=== PATIENT | female | born 1990 | race Caucasian/White ===

== ENCOUNTER 2018-01-31 22:54 | Inpatient (IN) | payer BC ==
[2018-02-01] MEDS: Lactated Ringers 1,000 ML IV SCH ×2 (00:05→01:28)
[2018-02-01] MEDS ORDERED: Sodium Chloride 0.9% 10 ML Syringe FLUSH PRN (00:20)
[2018-02-01] MEDS ORDERED: fentaNYL 100 MCG/2 ML SDV EPIDUR PRN (01:21)
[2018-02-01] MEDS ORDERED: diphenhydrAMINE 50 MG/ML SDV IVPUSH PRN (01:21)
[2018-02-01] MEDS ORDERED: ePHEDrine 50 MG/ML SDV IVPUSH PRN (01:21)
[2018-02-01] MEDS ORDERED: Ondansetron 4 MG/2 ML SDV IVPUSH PRN (01:21)
[2018-02-01] MEDS ORDERED: Bupivacaine/fentaNYL/NS 100 ML Bag EPIDUR SCH (01:30)
--- NOTE | 2018-02-01 02:13 | PCM.PREANE ---
Preanesthetic Assessment - Procedure Proposed Procedure: JEREMIAS - Anesthesia/Transfusion/Family Hx Anesthesia History: Prior Anesthesia Without Reaction Family History of Anesthesia Reaction: No Transfusion History: No Prior Transfusion(s) - Review of Systems General: No Symptoms Pulmonary: No Symptoms Cardiovascular: No Symptoms Gastrointestinal: No Symptoms Neurological: No Symptoms Other: Reports: None - Physical Assessment NPO Status Date: 02/01/18 NPO Status Time: 00:30 O2 Sat by Pulse Oximetry: 98 Respiratory Rate: 15 Vital Signs: Last Vital Signs Temp 37.4 C 02/01/18 00:20 Pulse 79 02/01/18 00:20 Resp 15 02/01/18 00:20 BP 118/75 02/01/18 00:20 Pulse Ox 98 02/01/18 00:20 Height: 1.6 m Weight: 93.44 kg ASA Class: 2 Mental Status: Alert & Oriented x3 Airway Class: Mallampati = 2 Dentition: Reports: Normal Dentition Thyro-Mental Finger Breadths: 3 Mouth Opening Finger Breadths: 3 ROM/Head Extension: Full Lungs: Clear to Auscultation, Normal Respiratory Effort Cardiovascular: Regular Rate, Regular Rhythm - Lab Values: Laboratory Last Values WBC 11.97 K/mm3 (3.98-10.04) H 02/01/18 00:35 RBC 3.63 M/mm3 (3.98-5.22) L 02/01/18 00:35 Hgb 11.2 gm/L (11.2-15.7) 02/01/18 00:35 Hct 34.1 % (34.1-44.9) 02/01/18 00:35 MCV 93.9 fl (79.4-94.8) 02/01/18 00:35 MCH 30.9 pg (25.6-32.2) 02/01/18 00:35 MCHC 32.8 g/dl (32.2-35.5) 02/01/18 00:35 RDW Std Deviation 45.7 fL (36.4-46.3) 02/01/18 00:35 Plt Count 216 K/mm3 (182-369) 02/01/18 00:35 MPV 10.3 fl (9.4-12.3) 02/01/18 00:35 Neut % (Auto) 67.7 % (34.0-71.1) 02/01/18 00:35 Lymph % (Auto) 24.2 % (19.3-51.7) 02/01/18 00:35 [place] % (Auto) 6.7 % (4.7-12.5) 02/01/18 00:35 Eos % (Auto) 0.9 (0.7-5.8) 02/01/18 00:35 Baso % (Auto) 0.2 % (0.1-1.2) 02/01/18 00:35 Neut # (Auto) 8.11 K/mm3 (1.56-6.13) H 02/01/18 00:35 Lymph # (Auto) 2.90 K/mm3 (1.18-3.74) 02/01/18 00:35 [place] # (Auto) 0.80 K/mm3 (0.24-0.36) H 02/01/18 00:35 Eos # (Auto) 0.11 K/mm3 (0.04-0.36) 02/01/18 00:35 Baso # (Auto) 0.02 K/mm3 (0.01-0.08) 02/01/18 00:35 Blood Type AB POSITIVE 02/01/18 00:35 Gel Antibody Screen Negative 02/01/18 00:35 - Allergies Allergies/Adverse Reactions: Allergies Allergy/AdvReac Type Severity Reaction Status Date / Time No Known Allergies Allergy Verified 02/01/18 00:19 - Blood Blood Available: No Product(s) Available: None - Anesthesia Plan Pre-Op Medication Ordered: None - Acknowledgements Anesthesia Type Planned: Epidural Pt an Appropriate Candidate for the Planned Anesthesia: Yes Alternatives and Risks of Anesthesia Discussed w Pt/Guardian: Yes Pt/Guardian Understands and Agrees with Anesthesia Plan: Yes 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, , 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 , Other ( See Below) Other OB/BYN History: exploratory lap for endometriosis - Infectious Disease History Infectious Disease History: Reports: Chicken Pox - SUBSTANCE USE Smoking Status *Q: Never Smoker Second Hand Smoke Exposure: No Days Per Week of Alcohol Use: 0 Recreational Drug Use History: No - HOME MEDS Home Medications: Home Meds Pnv with Ca,No.71/Iron/Fa [ Vitamin Tablet] 1 each PO DAILY 01/26/15 [ History] - CURRENT (IN HOUSE) MEDS Current Meds: Current Medications Diphenhydramine HCl (Benadryl) 25 mg IVPUSH Q6H PRN PRN Reason: Pruritis Ephedrine Sulfate (Ephedrine Sulfate) 5 mg IVPUSH ASDIRECTED PRN PRN Reason: Hypotension Fentanyl (Sublimaze) 100 mcg EPIDUR Q3H PRN PRN Reason: Pain Last Admin: 02/01/18 01:52 Dose: 100 mcg Fentanyl/Bupivacaine HCl (Fentanyl/Bupivacaine/Ns 2 Mcg-0.125% 100 Ml) 100 ml EPIDUR ASDIRECTED [facility] Last Admin: 02/01/18 01:53 Dose: 100 ml Lactated Ringer's (Ringers, Lactated) 1,000 mls @ 100 mls/hr IV ASDIRECTED [facility] Last Admin: 02/01/18 01:28 Dose: 999 mls/hr Oxytocin 20 unit/ Lactated (Ringer's) 1,002 mls @ 500 mls/hr IV TITRATE [facility] PRN Reason: Protocol Ondansetron HCl (Zofran) 4 mg IVPUSH ONETIME PRN PRN Reason: Nausea/Vomiting Sodium Chloride (Saline Flush) 10 ml FLUSH ASDIRECTED PRN PRN Reason: Keep Vein Open
--- NOTE | 2018-02-01 02:35 | PCM.LDHP ---
<Teja Solitario - Last Filed: 02/01/18 02:58> L&D History of Present Illness - General Date of Service: 02/01/18 Admit Problem/Dx: Patient Status Order with Admit Dx/Problem 02/01/18 00:20 Patient Status [ADT] Routine Admission Diagnosis/Problem Admission Diagnosis/Problem Source of Information: Patient History Limitations: Reports: No Limitations - History of Present Illness Introduction:: Lilian Harmon is a pleasant 27 year old with an MENDOZA of 02/17/2018 with an EGA of 39 weeks 2 days who presents to labor and delivery after she experienced a gush of fluid at 2100 followed by contractions that began around 2130. She reports the fluid was clear and denies any bloody discharge. She reports the contractions have been occuring every 6 minutes from onset and last approximately 30 seconds. She reports mild abdominal and lower back pain associated with the contractions. She was tested for GBS on 01/25/2018 and was negative. Her blood type is AB + and she is antibody negative. 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, , 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 , Other ( See Below) Other OB/BYN History: exploratory lap for endometriosis - Infectious Disease History Infectious Disease History: Reports: Chicken Pox Social & Family History - Tobacco Use Smoking Status *Q: Never Smoker Second Hand Smoke Exposure: No - Alcohol Use Days Per Week of Alcohol Use: 0 - Recreational Drug Use Recreational Drug Use: No H&P Review of Systems - Review of Systems: Review Of Systems: See Below General: Reports: Fatigue HEENT: Reports: No Symptoms Pulmonary: Reports: No Symptoms Cardiovascular: Reports: No Symptoms Gastrointestinal: Reports: Abdominal Pain Musculoskeletal: Reports: Back Pain Skin: Reports: No Symptoms Psychiatric: Reports: No Symptoms L&D Exam - Exam Exam: See Below - Vital Signs Vital Signs: Last Vital Signs Temp 99.3 F 02/01/18 00:20 Pulse 79 02/01/18 00:20 Resp 15 02/01/18 02:13 BP 118/75 02/01/18 00:20 Pulse Ox 98 02/01/18 02:13 Weight: 206 lb - OB Specific Fundal Height In cm: 35 Contraction Duration (sec): 60 Contraction Frequency (min): 6 Contraction Intensity: Strong Movement: Active Heart Tones: Present Heart Tones per Min: 120 Heart Rate (FHR) Variability: Moderate (6-25 bmp) Presentation: Vertex - Exam General: Alert, Oriented HEENT: Conjunctiva Clear, Hearing Intact, Pupils Equal, Pupils Reactive Lungs: Clear to Auscultation, Normal Respiratory Effort Cardiovascular: Regular Rate, Regular Rhythm GI/Abdominal Exam: Normal Bowel Sounds, Soft, Non-Tender, No Organomegaly, No Distention, No Mass Skin: Warm, Dry, Intact DTR: 1+: Patella (L), Patella (R), 2+: Bicep (L), Bicep (R) Psychiatric: Alert, Normal Affect, Normal Mood - Patient Data Lab Results Last 24 hrs: Laboratory Results - last 24 hr 02/01/18 02/01/18 Range/Units 00:35 00:35 WBC 11.97 H (3.98-10.04) K/mm3 RBC 3.63 L (3.98-5.22) M/mm3 Hgb 11.2 (11.2-15.7) gm/L Hct 34.1 (34.1-44.9) % MCV 93.9 (79.4-94.8) fl MCH 30.9 (25.6-32.2) pg MCHC 32.8 (32.2-35.5) g/dl RDW Std Deviation 45.7 (36.4-46.3) fL Plt Count 216 (182-369) K/mm3 MPV 10.3 (9.4-12.3) fl Neut % (Auto) 67.7 (34.0-71.1) % Lymph % (Auto) 24.2 (19.3-51.7) % [place] % (Auto) 6.7 (4.7-12.5) % Eos % (Auto) 0.9 (0.7-5.8) Baso % (Auto) 0.2 (0.1-1.2) % Neut # (Auto) 8.11 H (1.56-6.13) K/mm3 Lymph # (Auto) 2.90 (1.18-3.74) K/mm3 [place] # (Auto) 0.80 H (0.24-0.36) K/mm3 Eos # (Auto) 0.11 (0.04-0.36) K/mm3 Baso # (Auto) 0.02 (0.01-0.08) K/mm3 Blood Type AB POSITIVE Gel Antibody Screen Negative Result Diagrams: 02/01/18 00:35 Orders Last 24hrs: Active Orders 24 hr Category Date Time Status Patient Status [ADT] Routine ADT 02/01/18 00:20 Active Activity as Tolerated [RC] PFP Care 02/01/18 00:20 Active Communication Order [RC] ASDIRECTED Care 02/01/18 00:20 Active Heart Tones [RC] ASDIRECTED Care 02/01/18 00:20 Active Insert [place] Catheter [Insert Urinary Catheter] [OM.PC] Care 02/01/18 00:30 Ordered Q24H Notify Provider [RC] PFP Care 02/01/18 00:20 Active Notify Provider [RC] PRN Care 02/01/18 00:20 Active PCEA Epidural [RC] ASDIRECTED Care 02/01/18 00:21 Active Peripheral IV Care [RC] . DIRECTED Care 02/01/18 00:20 Active Urinary Catheter Assessment [RC] ASDIRECTED Care 02/01/18 00:21 Active Vital Signs [RC] PER UNIT ROUTINE Care 02/01/18 00:20 Active PATIENT RETYPE [BBK] Stat Lab 02/01/18 00:35 Results TYPE AND SCREEN [BBK] Stat Lab 02/01/18 00:35 Results Bupivacaine/fentaNYL/NS [fentaNYL/Bupivacaine/NS 2 MCG- Med 02/01/18 01:30 Active 0.125% 100 ML] 100 ml EPIDUR ASDIRECTED Lactated Ringers [Ringers, Lactated] 1,000 ml Med 02/01/18 00:30 Active IV ASDIRECTED Ondansetron [Zofran] Med 02/01/18 01:21 Active 4 mg IVPUSH ONETIME PRN Oxytocin [Pitocin] 20 unit Med 02/01/18 00:30 Active Lactated Ringers [Ringers, Lactated] 1,000 ml IV TITRATE Sodium Chloride 0.9% [Saline Flush] Med 02/01/18 00:20 Active 10 ml FLUSH ASDIRECTED PRN diphenhydrAMINE [Benadryl] Med 02/01/18 01:21 Active 25 mg IVPUSH Q6H PRN ePHEDrine [ePHEDrine Sulfate] Med 02/01/18 01:21 Active 5 mg IVPUSH ASDIRECTED PRN fentaNYL [Sublimaze] Med 02/01/18 01:21 Active 100 mcg EPIDUR Q3H PRN Electronic Heart Tones Ext w TOCO [WOMSER] Oth 02/01/18 00:20 Ordered Routine Electronic Heart Tones Internal [WOMSER] Per Unit Oth 02/01/18 00:20 Ordered Routine Peripheral IV Insertion Adult [OM.PC] Routine Oth 02/01/18 00:20 Ordered Resuscitation Status Routine Resus Stat 02/01/18 00:20 Ordered Medication Orders Diphenhydramine HCl (Benadryl) 25 mg IVPUSH Q6H PRN PRN Reason: Pruritis Ephedrine Sulfate (Ephedrine Sulfate) 5 mg IVPUSH ASDIRECTED PRN PRN Reason: Hypotension Fentanyl (Sublimaze) 100 mcg EPIDUR Q3H PRN PRN Reason: Pain Last Admin: 02/01/18 01:52 Dose: 100 mcg Fentanyl/Bupivacaine HCl (Fentanyl/Bupivacaine/Ns 2 Mcg-0.125% 100 Ml) 100 ml EPIDUR ASDIRECTED [facility] Last Admin: 02/01/18 01:53 Dose: 100 ml Lactated Ringer's (Ringers, Lactated) 1,000 mls @ 100 mls/hr IV ASDIRECTED [facility] Last Admin: 02/01/18 01:28 Dose: 999 mls/hr Infusion: 02/01/18 01:28 Dose: 100 mls/hr Admin: 02/01/18 00:05 Dose: 100 mls/hr Oxytocin 20 unit/ Lactated (Ringer's) 1,002 mls @ 500 mls/hr IV TITRATE [facility] PRN Reason: Protocol Ondansetron HCl (Zofran) 4 mg IVPUSH ONETIME PRN PRN Reason: Nausea/Vomiting Sodium Chloride (Saline Flush) 10 ml FLUSH ASDIRECTED PRN PRN Reason: Keep Vein Open <Gian Anders - Last Filed: 02/01/18 03:05> L&D History of Present Illness - General Admit Problem/Dx: Patient Status Order with Admit Dx/Problem 02/01/18 00:20 Patient Status [ADT] Routine Admission Diagnosis/Problem Admission Diagnosis/Problem L&D Exam - Vital Signs Vital Signs: Last Vital Signs Temp 99.3 F 02/01/18 00:20 Pulse 79 02/01/18 00:20 Resp 15 02/01/18 02:13 BP 118/75 02/01/18 00:20 Pulse Ox 98 02/01/18 02:13 - Patient Data Lab Results Last 24 hrs: Laboratory Results - last 24 hr 02/01/18 02/01/18 Range/Units 00:35 00:35 WBC 11.97 H (3.98-10.04) K/mm3 RBC 3.63 L (3.98-5.22) M/mm3 Hgb 11.2 (11.2-15.7) gm/L Hct 34.1 (34.1-44.9) % MCV 93.9 (79.4-94.8) fl MCH 30.9 (25.6-32.2) pg MCHC 32.8 (32.2-35.5) g/dl RDW Std Deviation 45.7 (36.4-46.3) fL Plt Count 216 (182-369) K/mm3 MPV 10.3 (9.4-12.3) fl Neut % (Auto) 67.7 (34.0-71.1) % Lymph % (Auto) 24.2 (19.3-51.7) % [place] % (Auto) 6.7 (4.7-12.5) % Eos % (Auto) 0.9 (0.7-5.8) Baso % (Auto) 0.2 (0.1-1.2) % Neut # (Auto) 8.11 H (1.56-6.13) K/mm3 Lymph # (Auto) 2.90 (1.18-3.74) K/mm3 [place] # (Auto) 0.80 H (0.24-0.36) K/mm3 Eos # (Auto) 0.11 (0.04-0.36) K/mm3 Baso # (Auto) 0.02 (0.01-0.08) K/mm3 Blood Type AB POSITIVE Gel Antibody Screen Negative Result Diagrams: 02/01/18 00:35 - Problem List (1) 37 weeks gestation of SNOMED Code(s): 34457250 ICD Code: Z3A.37 - 37 WEEKS GESTATION OF Status: Acute Current Visit: Yes Problem List Initiated/Reviewed/Updated: No Orders Last 24hrs: Active Orders 24 hr Category Date Time Status Patient Status [ADT] Routine ADT 02/01/18 00:20 Active Activity as Tolerated [RC] PFP Care 02/01/18 00:20 Active Communication Order [RC] ASDIRECTED Care 02/01/18 00:20 Active Heart Tones [RC] ASDIRECTED Care 02/01/18 00:20 Active Insert Moreno Catheter [Insert Urinary Catheter] [OM.PC] Care 02/01/18 00:30 Ordered Q24H Notify Provider [RC] PFP Care 02/01/18 00:20 Active Notify Provider [RC] PRN Care 02/01/18 00:20 Active PCEA Epidural [RC] ASDIRECTED Care 02/01/18 00:21 Active Peripheral IV Care [RC] . DIRECTED Care 02/01/18 00:20 Active Urinary Catheter Assessment [RC] ASDIRECTED Care 02/01/18 00:21 Active Vital Signs [RC] PER UNIT ROUTINE Care 02/01/18 00:20 Active PATIENT RETYPE [BBK] Stat Lab 02/01/18 00:35 Results TYPE AND SCREEN [BBK] Stat Lab 02/01/18 00:35 Results Bupivacaine/fentaNYL/NS [fentaNYL/Bupivacaine/NS 2 MCG- Med 02/01/18 01:30 Active 0.125% 100 ML] 100 ml EPIDUR ASDIRECTED Lactated Ringers [Ringers, Lactated] 1,000 ml Med 02/01/18 00:30 Active IV ASDIRECTED Ondansetron [Zofran] Med 02/01/18 01:21 Active 4 mg IVPUSH ONETIME PRN Oxytocin [Pitocin] 20 unit Med 02/01/18 00:30 Active Lactated Ringers [Ringers, Lactated] 1,000 ml IV TITRATE Sodium Chloride 0.9% [Saline Flush] Med 02/01/18 00:20 Active 10 ml FLUSH ASDIRECTED PRN diphenhydrAMINE [Benadryl] Med 02/01/18 01:21 Active 25 mg IVPUSH Q6H PRN ePHEDrine [ePHEDrine Sulfate] Med 02/01/18 01:21 Active 5 mg IVPUSH ASDIRECTED PRN fentaNYL [Sublimaze] Med 02/01/18 01:21 Active 100 mcg EPIDUR Q3H PRN Electronic Heart Tones Ext w TOCO [WOMSER] Oth 02/01/18 00:20 Ordered Routine Electronic Heart Tones Internal [WOMSER] Per Unit Oth 02/01/18 00:20 Ordered Routine Peripheral IV Insertion Adult [OM.PC] Routine Oth 02/01/18 00:20 Ordered Resuscitation Status Routine Resus Stat 02/01/18 00:20 Ordered Medication Orders Diphenhydramine HCl (Benadryl) 25 mg IVPUSH Q6H PRN PRN Reason: Pruritis Ephedrine Sulfate (Ephedrine Sulfate) 5 mg IVPUSH ASDIRECTED PRN PRN Reason: Hypotension Fentanyl (Sublimaze) 100 mcg EPIDUR Q3H PRN PRN Reason: Pain Last Admin: 02/01/18 01:52 Dose: 100 mcg Fentanyl/Bupivacaine HCl (Fentanyl/Bupivacaine/Ns 2 Mcg-0.125% 100 Ml) 100 ml EPIDUR ASDIRECTED [facility] Last Admin: 02/01/18 01:53 Dose: 100 ml Lactated Ringer's (Ringers, Lactated) 1,000 mls @ 100 mls/hr IV ASDIRECTED [facility] Last Admin: 02/01/18 01:28 Dose: 999 mls/hr Infusion: 02/01/18 01:28 Dose: 100 mls/hr Admin: 02/01/18 00:05 Dose: 100 mls/hr Oxytocin 20 unit/ Lactated (Ringer's) 1,002 mls @ 500 mls/hr IV TITRATE [facility] PRN Reason: Protocol Ondansetron HCl (Zofran) 4 mg IVPUSH ONETIME PRN PRN Reason: Nausea/Vomiting Sodium Chloride (Saline Flush) 10 ml FLUSH ASDIRECTED PRN PRN Reason: Keep Vein Open Assessment/Plan Comment:: Patient seen, examined, discussed with patient. Plan delivery.
--- NOTE | 2018-02-01 03:12 | PCM.DEL ---
L & D Note - General Info Date of Service: 02/01/18 Mother's Due Date: 02/17/18 - Delivery Note Labor: Spontaneous Delivery Outcome: Livebirth (Male liveborn Thursday02[birth year]01[birth year]18 at 0248 hours RUBI nuchal cord times one Apgars 8/9 weight 3520 g 7 pounds 12.2 ounces) Delivery Method: Spontaneous Vaginal Delivery-Single Delivery Mode: Spontaneous Presentation: Left Occiput Anterior (RUBI) Nuchal Cord: Present (Times one reduced over the head) Prep: Povidone-Iodine (Betadine Anesthesia Type: Epidural Amniotic Fluid Description: Clear Episiotomy Type: None Laceration: None Placenta: Intact, [place]ontaneous ([place] [address]/01/18 velamentous insertion of the cord intact with senna and membranes discarded) Cord: 3 Vessels Estimated Blood Loss: 250 Resuscitation Needed: No : Suctioned, Bulb Syringe, Stimulated, Warmed, [place] Used, Warmer Used Provider: Gian Anders Score 1 min: 8 Score 5 min: 9 - Patient Data Vitals - Most Recent: Last Vital Signs Temp 99.3 F 02/01/18 00:20 Pulse 79 02/01/18 00:20 Resp 15 02/01/18 02:13 BP 118/75 02/01/18 00:20 Pulse Ox 98 02/01/18 02:13 Weight - Most Recent: 206 lb I&O - Last 24 Hours: Intake & Output 01/31/18 01/31/18 02/01/18 14:59 22:59 06:59 Intake Total 1000 Balance 1000 Lab Results Last 24 Hours: Laboratory Results - last 24 hr 02/01/18 02/01/18 Range/Units 00:35 00:35 WBC 11.97 H (3.98-10.04) K/mm3 RBC 3.63 L (3.98-5.22) M/mm3 Hgb 11.2 (11.2-15.7) gm/L Hct 34.1 (34.1-44.9) % MCV 93.9 (79.4-94.8) fl MCH 30.9 (25.6-32.2) pg MCHC 32.8 (32.2-35.5) g/dl RDW Std Deviation 45.7 (36.4-46.3) fL Plt Count 216 (182-369) K/mm3 MPV 10.3 (9.4-12.3) fl Neut % (Auto) 67.7 (34.0-71.1) % Lymph % (Auto) 24.2 (19.3-51.7) % [place] % (Auto) 6.7 (4.7-12.5) % Eos % (Auto) 0.9 (0.7-5.8) Baso % (Auto) 0.2 (0.1-1.2) % Neut # (Auto) 8.11 H (1.56-6.13) K/mm3 Lymph # (Auto) 2.90 (1.18-3.74) K/mm3 [place] # (Auto) 0.80 H (0.24-0.36) K/mm3 Eos # (Auto) 0.11 (0.04-0.36) K/mm3 Baso # (Auto) 0.02 (0.01-0.08) K/mm3 Blood Type AB POSITIVE Gel Antibody Screen Negative Med Orders - Current: Current Medications Diphenhydramine HCl (Benadryl) 25 mg IVPUSH Q6H PRN PRN Reason: Pruritis Ephedrine Sulfate (Ephedrine Sulfate) 5 mg IVPUSH ASDIRECTED PRN PRN Reason: Hypotension Fentanyl (Sublimaze) 100 mcg EPIDUR Q3H PRN PRN Reason: Pain Last Admin: 02/01/18 01:52 Dose: 100 mcg Fentanyl/Bupivacaine HCl (Fentanyl/Bupivacaine/Ns 2 Mcg-0.125% 100 Ml) 100 ml EPIDUR ASDIRECTED [facility] Last Admin: 02/01/18 01:53 Dose: 100 ml Lactated Ringer's (Ringers, Lactated) 1,000 mls @ 100 mls/hr IV ASDIRECTED [facility] Last Admin: 02/01/18 01:28 Dose: 999 mls/hr Oxytocin 20 unit/ Lactated (Ringer's) 1,002 mls @ 500 mls/hr IV TITRATE [facility] PRN Reason: Protocol Ondansetron HCl (Zofran) 4 mg IVPUSH ONETIME PRN PRN Reason: Nausea/Vomiting Sodium Chloride (Saline Flush) 10 ml FLUSH ASDIRECTED PRN PRN Reason: Keep Vein Open - Problem List & Annotations (1) 37 weeks gestation of SNOMED Code(s): 51780696 Code(s): Z3A.37 - 37 WEEKS GESTATION OF Status: Acute Current Visit: Yes (2) Normal delivery at term SNOMED Code(s): 87411007 Code(s): O80 - ENCOUNTER FOR FULL-TERM UNCOMPLICATED DELIVERY Status: Acute Current Visit: Yes (3) Nuchal cord without compression, delivered, current hospitalization SNOMED Code(s): 26601498 Code(s): O69.81X0 - LABOR AND DEL COMP BY CORD AROUND NECK, W/O COMPRSN, UNSP Status: Acute Current Visit: Yes (4) Velamentous insertion of umbilical cord, third trimester SNOMED Code(s): 11178060 Code(s): O43.123 - VELAMENTOUS INSERTION OF UMBILICAL CORD, THIRD TRIMESTER Status: Acute Current Visit: Yes - Problem List Review Problem List Initiated/Reviewed/Updated: No - My Orders Last 24 Hours: My Active Orders 02/01/18 00:20 Patient Status [ADT] Routine Activity as Tolerated [RC] PFP Communication Order [RC] ASDIRECTED Heart Tones [RC] ASDIRECTED Notify Provider [RC] PFP Notify Provider [RC] PRN Peripheral IV Care [RC] . DIRECTED Vital Signs [RC] PER UNIT ROUTINE Sodium Chloride 0.9% [Saline Flush] 10 ml FLUSH ASDIRECTED PRN Electronic Heart Tones Ext w TOCO [WOMSER] Routine Electronic Heart Tones Internal [WOMSER] Per Unit Routine Peripheral IV Insertion Adult [OM.PC] Routine Resuscitation Status Routine 02/01/18 00:21 PCEA Epidural [RC] ASDIRECTED Urinary Catheter Assessment [RC] ASDIRECTED 02/01/18 00:30 Insert Moreno Catheter [Insert Urinary Catheter] [OM.PC] Q24H Lactated Ringers [Ringers, Lactated] 1,000 ml IV ASDIRECTED Oxytocin [Pitocin] 20 unit Lactated Ringers [Ringers, Lactated] 1,000 ml IV TITRATE 02/01/18 00:35 PATIENT RETYPE [BBK] Stat TYPE AND SCREEN [BBK] Stat - Plan Plan:: Patient seen, examined, discussed with patient. Plan delivery.
[2018-02-01] MEDS ORDERED: Lanolin 100% Cream 7 GM Tube TOP PRN (03:17)
[2018-02-01] MEDS ORDERED: Benzocaine/Menthol 20%-0.5% Spray 56 GM Canister TOP PRN (03:17)
[2018-02-01] MEDS ORDERED: Acetaminophen/HYDROcodone 325-5 MG Tab PO PRN (03:17)
[2018-02-01] MEDS ORDERED: Witch Hazel Medicated Pads 100/Jar TOP PRN (03:17)
[2018-02-01] MEDS ORDERED: Ibuprofen 600 MG Tab PO PRN (03:17)
[2018-02-01] MEDS ORDERED: Docusate Sodium 100 MG Cap PO PRN (03:17)
[2018-02-01] MEDS ORDERED: Acetaminophen 325 MG Tab PO PRN (03:17)
[2018-02-01] MEDS ORDERED: Bupivacaine 0.25% 10 ML SDV ONE (07:00)
--- NOTE | 2018-02-01 08:06 | PCM.SN ---
- Free Text/Narrative Note: exam Afebrile, chest clear, uterus at umbilicus -1. No heavy vaginal bleeding. No leg cramping.
[2018-02-01] MEDS ORDERED: Prenatal Multivitamin with Calcium/Folic Acid/Iron Tab PO SCH (09:00)
[2018-02-01 23:44] VITALS: BP 119/74
--- NOTE | 2018-02-02 09:13 | PCM48HPAN ---
Post Anesthesia Note - EVALUATION WITHIN 48HRS OF ANESTHETIC Vital Signs in Normal Range: Yes Patient Participated in Evaluation: Yes Respiratory Function Stable: Yes Airway Patent: Yes Cardiovascular Function Stable: Yes Hydration Status Stable: Yes Pain Control Satisfactory: Yes Nausea and Vomiting Control Satisfactory: Yes Mental Status Recovered: Yes (no complaints) Pulse Rate: 84 Resp Rate: 15 Temperature: 97.5 F Blood Pressure: 119/74
--- NOTE | 2018-02-02 12:39 | PCM.DCSUM1 ---
Discharge Summary - Hospital Course Free Text/Narrative:: uneventful, see Dr. Frances has appointment in [place] 02/10/18. [facility] LIVE L/D Delivery Note Patient Name: JANIA LIMA Date of : 86 Patient Status: Inpatient Attending Provider: Gian Anders Date: 02/01/18 03:08 Initialization Date: 02/01/18 03:08 L & D Note - General Info Date of Service: 02/01/18 Mother's Due Date: 02/17/18 - Delivery Note Labor: Spontaneous Delivery Outcome: Livebirth (Male liveborn Thursday02/01/18 at 0248 hours RUBI nuchal cord times one Apgars 8/9 weight 3520 g 7 pounds 12.2 ounces) Infant Delivery Method: Spontaneous Vaginal Delivery-Single Delivery Mode: Spontaneous Presentation: Left Occiput Anterior (RUBI) Nuchal Cord: Present (Times one reduced over the head) Prep: Povidone-Iodine (Betadine Anesthesia Type: Epidural Amniotic Fluid Description: Clear Episiotomy Type: None Laceration: None Placenta: Intact, Spontaneous (At 0253 Thursday02/01/18 velamentous insertion of the cord intact with senna and membranes discarded) Cord: 3 Vessels Estimated Blood Loss: 250 Resuscitation Needed: No Kinder: Suctioned, Bulb Syringe, Stimulated, Warmed, [place] Used, Warmer Used Provider: Gian Anders Score 1 min: 8 Score 5 min: 9 - Patient Data Vitals - Most Recent: Last Vital Signs Temp 99.3 F 02/01/18 00:20 Pulse 79 02/01/18 00:20 Resp 15 02/01/18 02:13 BP 118/75 02/01/18 00:20 Pulse Ox 98 02/01/18 02:13 Weight - Most Recent: 206 lb I&O - Last 24 Hours: Intake & Output 01/31/18 01/31/18 02/01/18 14:59 22:59 06:59 Intake Total 1000 Balance 1000 Lab Results Last 24 Hours: Laboratory Results - last 24 hr 02/01/18 02/01/18 Range/Units 00:35 00:35 WBC 11.97 H (3.98-10.04) K/mm3 RBC 3.63 L (3.98-5.22) M/mm3 Hgb 11.2 (11.2-15.7) gm/L Hct 34.1 (34.1-44.9) % MCV 93.9 (79.4-94.8) fl MCH 30.9 (25.6-32.2) pg MCHC 32.8 (32.2-35.5) g/dl RDW Std Deviation 45.7 (36.4-46.3) fL Plt Count 216 (182-369) K/mm3 MPV 10.3 (9.4-12.3) fl Neut % (Auto) 67.7 (34.0-71.1) % Lymph % (Auto) 24.2 (19.3-51.7) % [place] % (Auto) 6.7 (4.7-12.5) % Eos % (Auto) 0.9 (0.7-5.8) Baso % (Auto) 0.2 (0.1-1.2) % Neut # (Auto) 8.11 H (1.56-6.13) K/mm3 Lymph # (Auto) 2.90 (1.18-3.74) K/mm3 [place] # (Auto) 0.80 H (0.24-0.36) K/mm3 Eos # (Auto) 0.11 (0.04-0.36) K/mm3 Baso # (Auto) 0.02 (0.01-0.08) K/mm3 Blood Type AB POSITIVE Gel Antibody Screen Negative Med Orders - Current: Current Medications Diphenhydramine HCl (Benadryl) 25 mg IVPUSH Q6H PRN PRN Reason: Pruritis Ephedrine Sulfate (Ephedrine Sulfate) 5 mg IVPUSH ASDIRECTED PRN PRN Reason: Hypotension Fentanyl (Sublimaze) 100 mcg EPIDUR Q3H PRN PRN Reason: Pain Last Admin: 02/01/18 01:52 Dose: 100 mcg Fentanyl/Bupivacaine HCl (Fentanyl/Bupivacaine/Ns 2 Mcg-0.125% 100 Ml) 100 ml EPIDUR ASDIRECTED VIRGILIO Last Admin: 02/01/18 01:53 Dose: 100 ml Lactated Ringer's (Ringers, Lactated) 1,000 mls @ 100 mls/hr IV ASDIRECTED VIRGILIO Last Admin: 02/01/18 01:28 Dose: 999 mls/hr Oxytocin 20 unit/ Lactated (Ringer's) 1,002 mls @ 500 mls/hr IV TITRATE VIRGILIO PRN Reason: Protocol Ondansetron HCl (Zofran) 4 mg IVPUSH ONETIME PRN PRN Reason: Nausea/Vomiting Sodium Chloride (Saline Flush) 10 ml FLUSH ASDIRECTED PRN PRN Reason: Keep Vein Open - Problem List & Annotations (1) 37 weeks gestation of SNOMED Code(s): 06061067 Code(s): Z3A.37 - 37 WEEKS GESTATION OF Status: Acute Current Visit: Yes (2) Normal delivery at term SNOMED Code(s): 54704510 Code(s): O80 - ENCOUNTER FOR FULL-TERM UNCOMPLICATED DELIVERY Status: Acute Current Visit: Yes (3) Nuchal cord without compression, delivered, current hospitalization SNOMED Code(s): 05284288 Code(s): O69.81X0 - LABOR AND DEL COMP BY CORD AROUND NECK, W/O COMPRSN, UNSP Status: Acute Current Visit: Yes (4) Velamentous insertion of umbilical cord, third trimester SNOMED Code(s): 13781566 Code(s): O43.123 - VELAMENTOUS INSERTION OF UMBILICAL CORD, THIRD TRIMESTER Status: Acute Current Visit: Yes - Problem List Review Problem List Initiated/Reviewed/Updated: No - My Orders Last 24 Hours: My Active Orders 02/01/18 00:20 Patient Status [ADT] Routine Activity as Tolerated [RC] PFP Communication Order [RC] ASDIRECTED Heart Tones [RC] ASDIRECTED Notify Provider [RC] PFP Notify Provider [RC] PRN Peripheral IV Care [RC] . DIRECTED Vital Signs [RC] PER UNIT ROUTINE Sodium Chloride 0.9% [Saline Flush] 10 ml FLUSH ASDIRECTED PRN Electronic Heart Tones Ext w TOCO [WOMSER] Routine Electronic Heart Tones Internal [WOMSER] Per Unit Routine Peripheral IV Insertion Adult [OM.PC] Routine Resuscitation Status Routine 02/01/18 00:21 PCEA Epidural [RC] ASDIRECTED Urinary Catheter Assessment [RC] ASDIRECTED 02/01/18 00:30 Insert Moreno Catheter [Insert Urinary Catheter] [OM.PC] Q24H Lactated Ringers [Ringers, Lactated] 1,000 ml IV ASDIRECTED Oxytocin [Pitocin] 20 unit Lactated Ringers [Ringers, Lactated] 1,000 ml IV TITRATE 02/01/18 00:35 PATIENT RETYPE [BBK] Stat TYPE AND SCREEN [BBK] Stat - Plan Plan:: Patient seen, examined, discussed with patient. Plan delivery. HPI Initial Comments: uneventful, see Dr. Frances has appointment in [place] 02/10/18. [facility] LIVE L/D Delivery Note Patient Name: JANIA LIMA Date of : 86 Patient Status: Inpatient Attending Provider: Gian Anders Date: 02/01/18 03:08 Initialization Date: 02/01/18 03:08 L & D Note - General Info Date of Service: 02/01/18 Mother's Due Date: 02/17/18 - Delivery Note Labor: Spontaneous Delivery Outcome: Livebirth (Male liveborn Thursday02/01/18 at 0248 hours RUBI nuchal cord times one Apgars 8/9 weight 3520 g 7 pounds 12.2 ounces) Infant Delivery Method: Spontaneous Vaginal Delivery-Single Infant Delivery Mode: Spontaneous Presentation: Left Occiput Anterior (RUBI) Nuchal Cord: Present (Times one reduced over the head) Prep: Povidone-Iodine (Betadine Anesthesia Type: Epidural Amniotic Fluid Description: Clear Episiotomy Type: None Laceration: None Placenta: Intact, Spontaneous (At 0253 Thursday02/01/18 velamentous insertion of the cord intact with senna and membranes discarded) Cord: 3 Vessels Estimated Blood Loss: 250 Resuscitation Needed: No : Suctioned, Bulb Syringe, Stimulated, Warmed, [place] Used, Warmer Used Provider: Gian Anders Score 1 min: 8 Score 5 min: 9 - Patient Data Vitals - Most Recent: Last Vital Signs Temp 99.3 F 02/01/18 00:20 Pulse 79 02/01/18 00:20 Resp 15 02/01/18 02:13 BP 118/75 02/01/18 00:20 Pulse Ox 98 02/01/18 02:13 Weight - Most Recent: 206 lb I&O - Last 24 Hours: Intake & Output 01/31/18 01/31/18 02/01/18 14:59 22:59 06:59 Intake Total 1000 Balance 1000 Lab Results Last 24 Hours: Laboratory Results - last 24 hr 02/01/18 02/01/18 Range/Units 00:35 00:35 WBC 11.97 H (3.98-10.04) K/mm3 RBC 3.63 L (3.98-5.22) M/mm3 Hgb 11.2 (11.2-15.7) gm/L Hct 34.1 (34.1-44.9) % MCV 93.9 (79.4-94.8) fl MCH 30.9 (25.6-32.2) pg MCHC 32.8 (32.2-35.5) g/dl RDW Std Deviation 45.7 (36.4-46.3) fL Plt Count 216 (182-369) K/mm3 MPV 10.3 (9.4-12.3) fl Neut % (Auto) 67.7 (34.0-71.1) % Lymph % (Auto) 24.2 (19.3-51.7) % [place] % (Auto) 6.7 (4.7-12.5) % Eos % (Auto) 0.9 (0.7-5.8) Baso % (Auto) 0.2 (0.1-1.2) % Neut # (Auto) 8.11 H (1.56-6.13) K/mm3 Lymph # (Auto) 2.90 (1.18-3.74) K/mm3 [place] # (Auto) 0.80 H (0.24-0.36) K/mm3 Eos # (Auto) 0.11 (0.04-0.36) K/mm3 Baso # (Auto) 0.02 (0.01-0.08) K/mm3 Blood Type AB POSITIVE Gel Antibody Screen Negative Med Orders - Current: Current Medications Diphenhydramine HCl (Benadryl) 25 mg IVPUSH Q6H PRN PRN Reason: Pruritis Ephedrine Sulfate (Ephedrine Sulfate) 5 mg IVPUSH ASDIRECTED PRN PRN Reason: Hypotension Fentanyl (Sublimaze) 100 mcg EPIDUR Q3H PRN PRN Reason: Pain Last Admin: 02/01/18 01:52 Dose: 100 mcg Fentanyl/Bupivacaine HCl (Fentanyl/Bupivacaine/Ns 2 Mcg-0.125% 100 Ml) 100 ml EPIDUR ASDIRECTED VIRGILIO Last Admin: 02/01/18 01:53 Dose: 100 ml Lactated Ringer's (Ringers, Lactated) 1,000 mls @ 100 mls/hr IV ASDIRECTED VIRGILIO Last Admin: 02/01/18 01:28 Dose: 999 mls/hr Oxytocin 20 unit/ Lactated (Ringer's) 1,002 mls @ 500 mls/hr IV TITRATE VIRGILIO PRN Reason: Protocol Ondansetron HCl (Zofran) 4 mg IVPUSH ONETIME PRN PRN Reason: Nausea/Vomiting Sodium Chloride (Saline Flush) 10 ml FLUSH ASDIRECTED PRN PRN Reason: Keep Vein Open - Problem List & Annotations (1) 37 weeks gestation of SNOMED Code(s): 84699677 Code(s): Z3A.37 - 37 WEEKS GESTATION OF Status: Acute Current Visit: Yes (2) Normal delivery at term SNOMED Code(s): 92432050 Code(s): O80 - ENCOUNTER FOR FULL-TERM UNCOMPLICATED DELIVERY Status: Acute Current Visit: Yes (3) Nuchal cord without compression, delivered, current hospitalization SNOMED Code(s): 09269399 Code(s): O69.81X0 - LABOR AND DEL COMP BY CORD AROUND NECK, W/O COMPRSN, UNSP Status: Acute Current Visit: Yes (4) Velamentous insertion of umbilical cord, third trimester SNOMED Code(s): 57730058 Code(s): O43.123 - VELAMENTOUS INSERTION OF UMBILICAL CORD, THIRD TRIMESTER Status: Acute Current Visit: Yes - Problem List Review Problem List Initiated/Reviewed/Updated: No - My Orders Last 24 Hours: My Active Orders 02/01/18 00:20 Patient Status [ADT] Routine Activity as Tolerated [RC] PFP Communication Order [RC] ASDIRECTED Heart Tones [RC] ASDIRECTED Notify Provider [RC] PFP Notify Provider [RC] PRN Peripheral IV Care [RC] . DIRECTED Vital Signs [RC] PER UNIT ROUTINE Sodium Chloride 0.9% [Saline Flush] 10 ml FLUSH ASDIRECTED PRN Electronic Heart Tones Ext w TOCO [WOMSER] Routine Electronic Heart Tones Internal [WOMSER] Per Unit Routine Peripheral IV Insertion Adult [OM.PC] Routine Resuscitation Status Routine 02/01/18 00:21 PCEA Epidural [RC] ASDIRECTED Urinary Catheter Assessment [RC] ASDIRECTED 02/01/18 00:30 Insert Moreno Catheter [Insert Urinary Catheter] [OM.PC] Q24H Lactated Ringers [Ringers, Lactated] 1,000 ml IV ASDIRECTED Oxytocin [Pitocin] 20 unit Lactated Ringers [Ringers, Lactated] 1,000 ml IV TITRATE 02/01/18 00:35 PATIENT RETYPE [BBK] Stat TYPE AND SCREEN [BBK] Stat - Plan Plan:: Patient seen, examined, discussed with patient. Plan delivery. Brief History: uneventful, see Dr. Frances has appointment in [place] 02/10/18. [facility] LIVE . L/D Delivery Note. Patient Name: JANIA LIMA Record Number: [id number]. Date of : 86Patient Status: Inpatient. Attending Provider: Gian Anders Number: [id number]. Date: 02/01/18 03:08Initialization Date: 02/01/18 03:08. L & D Note. - General Info. Date of Service: 02/01/18. Mother's Due Date: 02/17/18. - Delivery Note. Labor: Spontaneous. Delivery Outcome: Livebirth (Male liveborn Thursday02/01/18 at 0248 hours RUBI nuchal cord times one Apgars 8/9 weight 3520 g 7 pounds 12.2 ounces). Infant Delivery Method: Spontaneous Vaginal Delivery- Single. Delivery Mode: Spontaneous. Presentation: Left Occiput Anterior (RUBI). Nuchal Cord: Present (Times one reduced over the head). Prep: Povidone-Iodine (Betadine. Anesthesia Type: Epidural. Amniotic Fluid Description: Clear. Episiotomy Type: None. Laceration: None. Placenta: Intact , Spontaneous (At 0253 Thursday02/01/18 velamentous insertion of the cord intact with senna and membranes discarded). Cord: 3 Vessels. Estimated Blood Loss: 250. Resuscitation Needed: No. Kinder: Suctioned, Bulb Syringe, Stimulated, Warmed, [place] Used, Warmer Used. Provider: Gian Anders. Score 1 min: 8. Score 5 min: 9. - Patient Data. Vitals - Most Recent: Last Vital Signs. Temp 99.3 F 02/01/18 00:20. Pulse 79 02/01/18 00: 20. Resp 15 02/01/18 02:13. BP 118/75 02/01/18 00:20. Pulse Ox 98 02:13. Weight - Most Recent: 206 lb. I&O - Last 24 Hours: Intake & Output. 01/31/180309/1803. 14:5922:5906:59. Intake [id number]. [id number]. Lab Results Last 24 Hours: Laboratory Results - last 24 hr. Range/Units. 00:3500:35. WBC 11.97 H (3.98-10.04) K/mm3. RBC 3.63 L (3.98-5.22) M/mm3. Hgb 11.2 (11.2-15.7) gm/L. Hct 34.1 (34.1-44.9) % . MCV 93.9 (79.4-94.8) fl. MCH 30.9 (25.6-32.2) pg. MCHC 32.8 (32.2-35.5) g/dl. RDW Std Deviation 45.7 (36.4-46.3) fL. Plt Count 216 (182-369) K/mm3. MPV 10.3 (9.4-12.3) fl. Neut % (Auto) 67.7 (34.0-71.1) %. Lymph % (Auto) 24.2 (19.3-51.7) %. [place] % (Auto) 6.7 (4.7-12.5) %. Eos % (Auto) 0.9 (0.7- 5.8). Baso % (Auto) 0.2 (0.1-1.2) %. Neut # (Auto) 8.11 H (1.56-6.13) K/ mm3. Lymph # (Auto) 2.90 (1.18-3.74) K/mm3. [place] # (Auto) 0.80 H (0.24-0.36) K/mm3. Eos # (Auto) 0.11 (0.04-0.36) K/mm3. Baso # (Auto) 0.02 (0.01-0.08) K/mm3. Blood Type AB POSITIVE. Gel Antibody Screen Negative. Med Orders - Current: Current Medications. Diphenhydramine HCl (Benadryl) 25 mg IVPUSH Q6H PRN. PRN Reason: Pruritis. Ephedrine Sulfate (Ephedrine Sulfate) 5 mg IVPUSH ASDIRECTED PRN. PRN Reason: Hypotension. Fentanyl (Sublimaze) 100 mcg EPIDUR Q3H PRN. PRN Reason: Pain. Last Admin: 02/01/18 01:52 Dose: 100 mcg. Fentanyl/Bupivacaine HCl (Fentanyl/Bupivacaine/Ns 2 Mcg-0.125% 100 Ml) 100 ml EPIDUR ASDIRECTED VIRGILIO. Last Admin: 02/01/18 01:53 Dose: 100 ml. Lactated Ringer's (Ringers, Lactated) 1,000 mls @ 100 mls/hr IV ASDIRECTED VIRGILIO. Last Admin: 02/01/18 01:28 Dose: 999 mls/hr. Oxytocin 20 unit/ Lactated (Ringer's) 1,002 mls @ 500 mls/hr IV TITRATE VIRGILIO. PRN Reason: Protocol. Ondansetron HCl (Zofran) 4 mg IVPUSH ONETIME PRN. PRN Reason: Nausea/Vomiting. Sodium Chloride (Saline Flush) 10 ml FLUSH ASDIRECTED PRN. PRN Reason: Keep Vein Open. - Problem List & Annotations. (1) 37 weeks gestation of . SNOMED Code(s): 13841945. Code(s): Z3A.37 - 37 WEEKS GESTATION OF Status: Acute Current Visit: Yes. (2) Normal delivery at term. SNOMED Code(s ): 83038532. Code(s): O80 - ENCOUNTER FOR FULL-TERM UNCOMPLICATED DELIVERY Status: Acute Current Visit: Yes. (3) Nuchal cord without compression, delivered, current hospitalization. SNOMED Code(s): 94441994. Code(s): O69.81X0 - LABOR AND DEL COMP BY CORD AROUND NECK, W/O COMPRSN, UNSP Status: Acute Current Visit: Yes. (4) Velamentous insertion of umbilical cord, third trimester. SNOMED Code(s): 47046423. Code(s): O43.123 - VELAMENTOUS INSERTION OF UMBILICAL CORD, THIRD TRIMESTER Status: Acute Current Visit: Yes. - Problem List Review. Problem List Initiated/Reviewed/Updated: No. - My Orders. Last 24 Hours: My Active Orders. 02/01/18 00:20. Patient Status [ADT ] Routine. Activity as Tolerated [RC] PFP. Communication Order [RC] ASDIRECTED. Heart Tones [RC] ASDIRECTED. Notify Provider [RC] PFP. Notify Provider [RC] PRN. Peripheral IV Care [RC] . DIRECTED. Vital Signs [ RC] PER UNIT ROUTINE. Sodium Chloride 0.9% [Saline Flush] 10 ml FLUSH ASDIRECTED PRN. Electronic Heart Tones Ext w TOCO [WOMSER] Routine. Electronic Heart Tones Internal [WOMSER] Per Unit Routine. Peripheral IV Insertion Adult [OM.PC] Routine. Resuscitation Status Routine. 02/01/18 00: 21. PCEA Epidural [RC] ASDIRECTED. Urinary Catheter Assessment [RC] ASDIRECTED. 02/01/18 00:30. Insert Moreno Catheter [Insert Urinary Catheter] [ OM.PC] Q24H. Lactated Ringers [Ringers, Lactated] 1,000 ml IV ASDIRECTED. Oxytocin [Pitocin] 20 unit Lactated Ringers [Ringers, Lactated] 1,000 ml IV TITRATE. 02/01/18 00:35. PATIENT RETYPE [BBK] Stat. TYPE AND SCREEN [BBK] Stat. - Plan. Plan:: Patient seen, examined, discussed with patient. Plan delivery. - Discharge Data Discharge Date: 02/02/18 Discharge Disposition: Home, Self-Care 01 Condition: Good - Discharge Diagnosis/Problem(s) (1) 37 weeks gestation of SNOMED Code(s): 39275510 ICD Code: Z3A.37 - 37 WEEKS GESTATION OF Status: Acute Current Visit: Yes (2) Normal delivery at term SNOMED Code(s): 94932990 ICD Code: O80 - ENCOUNTER FOR FULL-TERM UNCOMPLICATED DELIVERY Status: Acute Current Visit: Yes (3) Nuchal cord without compression, delivered, current hospitalization SNOMED Code(s): 52273969 ICD Code: O69.81X0 - LABOR AND DEL COMP BY CORD AROUND NECK, W/O COMPRSN, UNSP Status: Acute Current Visit: Yes (4) Velamentous insertion of umbilical cord, third trimester SNOMED Code(s): 73820101 ICD Code: O43.123 - VELAMENTOUS INSERTION OF UMBILICAL CORD, THIRD TRIMESTER Status: Acute Current Visit: Yes - Patient Summary/Data Complications: none Consults: none Hospital Course: uneventful - Patient Instructions Diet: Regular Diet as Tolerated Driving: Do Not Drive (48 hours) Showering/Bathing: May Shower Notify Provider of: Fever, Increased Pain, Swelling and Redness, Drainage, Nausea and/or Vomiting - Discharge Plan Home Medications: Home Meds Pnv with Ca,No.71/Iron/Fa [ Vitamin Tablet] 1 each PO DAILY 01/26/15 [ History] Acetaminophen [Tylenol] 650 mg PO Q4H PRN tablet 02/02/18 [Rx] Docusate Sodium [Colace] 100 mg PO BID PRN cap 02/02/18 [Rx] Ibuprofen [IJD: Ibuprofen] 600 mg PO Q4H PRN tablet 02/02/18 [Rx] Lanolin [Lansinoh HPA] 1 applic TOP ASDIRECTED PRN #1 tube 02/02/18 [Rx] Referrals: Edward Frances MD [Physician] - - Discharge Summary/Plan Comment DC Time >30 min.: No - Patient Data Vitals - Most Recent: Last Vital Signs Temp 97.5 F 02/02/18 09:13 Pulse 84 02/02/18 09:13 Resp 15 02/02/18 09:13 BP 119/74 02/02/18 09:13 Pulse Ox 94 L 02/01/18 20:35 Weight - Most Recent: 206 lb Lab Results - Last 24 hrs: Laboratory Results - last 24 hr 02/02/18 Range/Units 06:56 WBC 9.93 (3.98-10.04) K/mm3 RBC 3.74 L (3.98-5.22) M/mm3 Hgb 11.4 (11.2-15.7) gm/L Hct 35.3 (34.1-44.9) % MCV 94.4 (79.4-94.8) fl MCH 30.5 (25.6-32.2) pg MCHC 32.3 (32.2-35.5) g/dl RDW Std Deviation 46.9 H (36.4-46.3) fL Plt Count 182 (182-369) K/mm3 MPV 10.6 (9.4-12.3) fl Neut % (Auto) 63.7 (34.0-71.1) % Lymph % (Auto) 27.1 (19.3-51.7) % [place] % (Auto) 7.0 (4.7-12.5) % Eos % (Auto) 1.7 (0.7-5.8) Baso % (Auto) 0.2 (0.1-1.2) % Neut # (Auto) 6.32 H (1.56-6.13) K/mm3 Lymph # (Auto) 2.69 (1.18-3.74) K/mm3 [place] # (Auto) 0.70 H (0.24-0.36) K/mm3 Eos # (Auto) 0.17 (0.04-0.36) K/mm3 Baso # (Auto) 0.02 (0.01-0.08) K/mm3 Med Orders - Current: Current Medications Acetaminophen (Tylenol) 650 mg PO Q4H PRN PRN Reason: mild pain or fever Hydrocodone Bitart/Acetaminophen ([place] 325-5 Mg) 2 tab PO Q4H PRN PRN Reason: Pain (moderate 4-6) Benzocaine/Menthol (Dermoplast Pain Relief [place]) 0 gm TOP ASDIRECTED PRN PRN Reason: Perineal Comfort Measure Docusate Sodium (Colace) 100 mg PO BID PRN PRN Reason: Constipation Emollient Ointment (Lansinoh Hpa) 0 gm TOP ASDIRECTED PRN PRN Reason: Sore Nipples Ibuprofen (Motrin) 600 mg PO Q4H PRN PRN Reason: Mild pain or fever Prenat Multivit/[place]/Iron/Folic Ac ( Plus Iron) 1 each PO DAILY VIRGILIO Last Admin: 02/01/18 10:55 Dose: 1 each Witch Steph (Evgeny) 1 pad TOP ASDIRECTED PRN PRN Reason: Hemorrhoid pain Discontinued Medications Bupivacaine HCl (Sensorcaine-Mpf 0.25%) 10 ml .ROUTE .STK-MED ONE Stop: 02/01/18 07:01 Diphenhydramine HCl (Benadryl) 25 mg IVPUSH Q6H PRN PRN Reason: Pruritis Ephedrine Sulfate (Ephedrine Sulfate) 5 mg IVPUSH ASDIRECTED PRN PRN Reason: Hypotension Fentanyl (Sublimaze) 100 mcg EPIDUR Q3H PRN PRN Reason: Pain Last Admin: 02/01/18 01:52 Dose: 100 mcg Fentanyl/Bupivacaine HCl (Fentanyl/Bupivacaine/Ns 2 Mcg-0.125% 100 Ml) 100 ml EPIDUR ASDIRECTED VIRGILIO Last Admin: 02/01/18 01:53 Dose: 100 ml Lactated Ringer's (Ringers, Lactated) 1,000 mls @ 100 mls/hr IV ASDIRECTED VIRGILIO Last Admin: 02/01/18 01:28 Dose: 999 mls/hr Oxytocin 20 unit/ Lactated (Ringer's) 1,002 mls @ 500 mls/hr IV TITRATE VIRGILIO PRN Reason: Protocol Last Admin: 02/01/18 05:44 Dose: 20 unit/m, 60,120.02 mls/hr Ondansetron HCl (Zofran) 4 mg IVPUSH ONETIME PRN PRN Reason: Nausea/Vomiting Sodium Chloride (Saline Flush) 10 ml FLUSH ASDIRECTED PRN PRN Reason: Keep Vein Open *Q Meaningful Use (DIS) - VTE *Q VTE Criteria *Q: - Stroke *Q Stroke Criteria *Q: - AMI *Q AMI Criteria *Q:
== END 2018-02-02 13:45 | disposition home or self-care (01) | DRG 560 ==
LOC: JD.OBCHECK 22:54 → JD.OB 23:03 → JD.OBCHECK 02-01 00:28 → JD.OB 02-01 00:29 → OBSVTOIN 02-01 02:48
PROVIDERS: ADMIT Obstetrics & Gynecology; ATTEND Obstetrics & Gynecology
PROC: 10E0XZZ Delivery of Products of Conception, External Approach (ICD-10-PCS; principal; 2018-02-01)
PROC: 00HU33Z Insertion of Infusion Device into Spinal Canal, Percutaneous Approach (ICD-10-PCS; 2018-02-01)
PROC: 3E0R3BZ Introduction of Anesthetic Agent into Spinal Canal, Percutaneous Approach (ICD-10-PCS; 2018-02-01)
DX: O69.81X0 Labor and delivery complicated by cord around neck, without compression, not applicable or unspecified (principal); O43.123 Velamentous insertion of umbilical cord, third trimester; Z3A.37 37 weeks gestation of pregnancy; Z37.0 Single live birth
CPT/HCPCS: 36415; 59409; 85025; 86850; 86900; 86901; A9270-GY; J2590; J3010; J7120